=== PATIENT | male | born 2000 | race Hispanic/Latino ===

== ENCOUNTER → 2024-07-03 | Day surgery (SDC) | payer BC ==
[~2024-07-03] MED LIST: MINOXIDIL2.5 MG PO
[2024-07-03] MEDS: LACTATED RINGER'S 1,000 ML ONE (11:09)
[2024-07-03 13:20] VITALS: BP 114/66; PULSE 84; RESP 16; O2SAT 98
== END | disposition home or self-care (01) ==
LOC: OR 10:29
PROVIDERS: ATTEND Internal Medicine Gastroenterology
DX: K62.89 Other specified diseases of anus and rectum (principal); R19.7 Diarrhea, unspecified; K64.8 Other hemorrhoids; R17 Unspecified jaundice
CPT/HCPCS: 45380; J7121; 45378